=== PATIENT | male | born 1965 | race African-American/Black ===

== ENCOUNTER 2020-02-17 15:08 | Emergency (ER) | payer SELFPAY ==
[2020-02-17] MEDS ORDERED: NA CHLORIDE 0.9% 1,000 ML ONE (15:28)
[2020-02-17 15:55] LABS: Absolute Lymphocytes (CBC) 2.4 K/uL (0.7-4.9); Basophils % 1.3 % (0-1.3); Hematocrit 47.4 % (39.6-49.0); Lymphocytes % 25.1 % (15.3-44.8); MPV 9.7 fL (7.6-11.3); RBC Red Blood Cell Count 5.33 M/uL (4.33-5.43)
[2020-02-17 16:19] LABS: Potassium 3.5 mmol/L (3.5-5.1)
--- NOTE | 2020-02-17 17:47 | ER ---
Nurse's Notes [facility] Name: Shantanu Dent Age: 54 yrs Sex: Male : 1965 Arrival Date: 02/17/2020 Time: 15:11 Bed 8 Private MD: Diagnosis: Heat exhaustion, unspecified;Dehydration Presentation: 02/16 15:14 Chief complaint: Patient states: pt reports that he was working outside and started to jr10 have abd cramping and left arm and leg cramping. Coronavirus screen: Client denies travel out of the [place] in the last 14 days. At this time, the client does not indicate any symptoms associated with coronavirus-19. Ebola Screen: No symptoms or risks identified at this time. Initial Sepsis Screen: Does the patient meet any 2 criteria? No. Patient's initial sepsis screen is negative. Does the patient have a suspected source of infection? No. Patient's initial sepsis screen is negative. Risk Assessment: Do you want to hurt yourself or someone else? Patient reports no desire to harm self or others. Onset of symptoms was February 17, 2020. 15:14 Method Of Arrival: EMS jr10 15:14 Acuity: ESDRAS 3 jr10 Historical: - Allergies: 15:40 No Known Allergies; jr10 - Home Meds: 15:40 None [Active]; jr10 - PMHx: 15:40 Hypertension; jr10 - PSHx: 15:40 None; jr10 - Immunization history:: Adult Immunizations up to date. - Social history:: Smoking status: unknown. - Family history:: not pertinent. - Hospitalizations: : No recent hospitalization is reported. Screenin:14 Abuse screen: Denies threats or abuse. Denies injuries from another. Nutritional jr10 screening: No deficits noted. Tuberculosis screening: No symptoms or risk factors identified. Fall Risk IV access (20 points). Assessment: 15:14 General: Appears uncomfortable, Behavior is restless. Pain: Complains of pain in chest, jr10 left arm and left leg Pain currently is 9 out of 10 on a pain scale. Quality of pain is described as crampy, Is episodic, lasting a few minutes. Neuro: No deficits noted. Cardiovascular: Reports chest pain, cramping across anterior chest wall Rhythm is sinus rhythm. Respiratory: No deficits noted. Airway is patent Respiratory effort is even, unlabored, Respiratory pattern is regular, symmetrical, Denies shortness of breath. GI: Bowel sounds present X 4 quads. Abd is soft and non tender X 4 quads. Reports nausea, Patient currently denies vomiting. : No deficits noted. No signs and/or symptoms were reported regarding the genitourinary system. EENT: No deficits noted. No signs and/or symptoms were reported regarding the EENT system. Derm: Skin is moist. Musculoskeletal: Reports muscle cramping. 17:11 Reassessment: pt ambulatory to bathroom independently with stable and steady gait noted.jr10 17:44 Reassessment: Dr Del Valle at bedside discussing results with pt. jr10 Vital Signs: 15:14 Pulse 88; Resp 20; Temp 98.9; Pulse Ox 98% on R/A; Pain 9/10; jr10 16:08 BP 164 / 84; Pulse 56; Resp 20; Pulse Ox 99% on R/A; jr10 17:11 BP 151 / 78; Pulse 55; Resp 18; Pulse Ox 100% on R/A; Pain 0/10; jr10 ED Course: 15:11 Patient arrived in ED. jr10 15:12 Nehemiah Del Valle MD is Attending Physician. rn 15:14 Patient has correct armband on for positive identification. Bed in low position. Call jr10 light in reach. Side rails up X2. hall monitor on. Pulse ox on. NIBP on. 15:15 Triage completed. jr10 15:15 Arm band placed on. jr10 15:16 Yee Cespedes, [place] is Primary Nurse. jr10 15:16 Maintain EMS IV. Dressing intact. Good blood return noted. Site clean \T\ dry. 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 17:46 Albert Ace MD is Referral Physician. rn 17:58 No provider procedures requiring assistance completed. IV discontinued, intact, jr10 bleeding controlled, No redness/swelling at site. Pressure dressing applied. Administered Medications: 15:28 Drug: NS 0.9% 1000 ml Route: IV; Rate: 1000 ml; Site: left antecubital; jr10 17:12 Follow up: Response: No adverse reaction; IV Status: Completed infusion jr10 Outcome: 17:46 Discharge ordered by MD. rn 17:58 Discharged to home ambulatory. jr10 17:58 Condition: improved 17:58 Discharge instructions given to patient, Instructed on discharge instructions, follow up and referral plans. Demonstrated understanding of instructions, follow-up care. 17:59 Patient left the ED. jr10 Signatures: Nehemiah Del Valle MD MD rn Rivera, Jessica, RN RN jr10
--- NOTE | 2020-02-17 17:47 | EDPHYS ---
Physician Documentation [facility] Name: Shantanu Dent Age: 54 yrs Sex: Male : 1965 Arrival Date: 02/17/2020 Time: 15:11 Bed 8 Private MD: ED Physician Nehemiah Del Valle HPI: 02/16 15:13 This 54 yrs old Black Male presents to ER via Unassigned with complaints of heat rn exhaustion. 15:13 Reports working all day in heat, + generalized weakness, nausea, almost passed out, rn skipped breakfast and lunch, drinking some water, felt "like couldn't cool down", much better in ambulance and after fluids. Reports only muscle cramping. NO chest pain/sob/abd pain/diarrhea/focal neuro complaints. . Onset: The symptoms/episode began/occurred just prior to arrival. Severity of symptoms: At their worst the symptoms were moderate in the emergency department the symptoms are unchanged. The patient has not experienced similar symptoms in the past. The patient has not recently seen a physician. Historical: - Allergies: 15:40 No Known Allergies; jr10 - Home Meds: 15:40 None [Active]; jr10 - PMHx: 15:40 Hypertension; jr10 - PSHx: 15:40 None; jr10 - Immunization history:: Adult Immunizations up to date. - Social history:: Smoking status: unknown. - Family history:: not pertinent. - Hospitalizations: : No recent hospitalization is reported. ROS: 15:13 Constitutional: Negative for fever, chills, and weight loss, Eyes: Negative for injury, rn pain, redness, and discharge, Neck: Negative for injury, pain, and swelling, Cardiovascular: Negative for chest pain, palpitations, and edema, Respiratory: Negative for shortness of breath, cough, wheezing, and pleuritic chest pain, Abdomen/GI: Negative for abdominal pain, vomiting, diarrhea, and constipation, MS/Extremity: Negative for injury and deformity, Skin: Negative for injury, rash, and discoloration, Neuro: Negative for headache, numbness, tingling, and seizure. Exam: 15:13 Constitutional: This is a well developed, well nourished patient who is awake, alert, rn and in no acute distress. Head/Face: Normocephalic, atraumatic. ENT: dry MM Cardiovascular: Regular rate and rhythm. No pulse deficits. Respiratory: Speaking full sentences. No increased work of breathing, no retractions or nasal flaring. Abdomen/GI: soft, non-tender MS/ Extremity: Pulses equal, no cyanosis. Neurovascular intact. Full, normal range of motion. Equal circumference. Neuro: Awake and alert, GCS 15, oriented to person, place, time, and situation. Cranial nerves II-XII grossly intact. Motor strength 5/5 in all extremities. Sensory grossly intact. Cerebellar exam normal. Normal gait. Vital Signs: 15:14 Pulse 88; Resp 20; Temp 98.9; Pulse Ox 98% on R/A; Pain 9/10; jr10 16:08 BP 164 / 84; Pulse 56; Resp 20; Pulse Ox 99% on R/A; jr10 17:11 BP 151 / 78; Pulse 55; Resp 18; Pulse Ox 100% on R/A; Pain 0/10; jr10 MDM: 15:12 Patient medically screened. rn 17:44 Differential Diagnosis dehydration, rhabdomyolysis, heat exhaustion. Data reviewed: rn vital signs, nurses notes, lab test result(s), and as a result, I will discharge patient. Counseling: I had a detailed discussion with the patient and/or guardian regarding: the historical points, exam findings, and any diagnostic results supporting the discharge/admit diagnosis, lab results, the need for outpatient follow up, to return to the emergency department if symptoms worsen or persist or if there are any questions or concerns that arise at home. Response to treatment: the patient's symptoms have resolved after treatment, the patient's condition has returned to base line, the patient is now symptom free, patient is well hydrated. and as a result, I will discharge patient. Special discussion: I discussed with the patient/guardian in detail that at this point there is no indication for admission to the hospital. It is understood, however, that if the symptoms persist or worsen the patient needs to return immediately for re-evaluation. ED course: Pt feels back to normal, + mild renal insufficiency likely 2/2 dehydration, given 2 L bolus here, asymptomatic, CK not greatly elevated, wants to go home, instructed to stay hydrated and if decreased or darker urine production to return. . 02/16 15:13 Order name: CBC with Diff; Complete Time: 16:50 rn 02/16 15:13 Order name: Basic Metabolic Panel; Complete Time: 16:50 rn 02/16 15:13 Order name: EKG; Complete Time: 15:13 rn 02/16 15:13 Order name: CK; Complete Time: 16:50 rn 02/16 15:16 Order name: Magnesium; Complete Time: 16:50 rn 02/16 15:13 Order name: IV Start; Complete Time: 15:17 rn 02/16 15:13 Order name: EKG - Nurse/Tech; Complete Time: 15:38 rn Administered Medications: 15:28 Drug: NS 0.9% 1000 ml Route: IV; Rate: 1000 ml; Site: left antecubital; jr10 17:12 Follow up: Response: No adverse reaction; IV Status: Completed infusion jr10 Disposition: 02/17/20 17:46 Discharged to Home. Impression: Heat exhaustion, unspecified, Dehydration. - Condition is Stable. - Discharge Instructions: Dehydration, Adult, Heat Exhaustion Information. - Work release form, Medication Reconciliation Form, Thank You Letter, Antibiotic Education, Prescription Opioid Use form. - Follow up: Albert Ace MD; When: As needed; Reason: Recheck today's complaints, Re-evaluation by your physician. - Problem is new. - Symptoms have improved. Signatures: Dispatcher [employer] EDNehemiah Chung MD MD rn Rivera, Jessica, RN RN jr10 Corrections: (The following items were deleted from the chart) 17:59 17:46 02/17/2020 17:46 Discharged to Home. Impression: Heat exhaustion, unspecified; jr10 Dehydration. Condition is Stable. Forms are Medication Reconciliation Form, Thank You Letter, Antibiotic Education, Prescription Opioid Use. Follow up: Albert Ace; When: As needed; Reason: Recheck today's complaints, Re-evaluation by your physician. Problem is new. Symptoms have improved. rn
[2020-02-17 19:00] VITALS: TEMP 98.9
[2020-02-17 19:03] VITALS: BP 151/78; O2SAT 100
--- NOTE | 2020-02-19 08:44 | EKG ---
Test Date: 2020-02-17 Test Time: 15:37:44 Public Health Director: DANIELA MEASUREMENT RESULTS: Intervals: Rate: 64 NM: 202 QRSD: 104 QT: 424 QTc: 437 [place]: P: 3 NM: 202 QRS: 75 T: 49 INTERPRETIVE STATEMENTS: Normal sinus rhythm Nonspecific ST and T wave abnormality Abnormal ECG Compared to ECG 06/30/2016 14:24:30 ST (T wave) deviation now present First degree AV block no longer present Electronically Signed On 02-19-20 08:38:53 CDT by Baltazar Xiong
== END 2020-02-17 17:59 | disposition home or self-care (01) ==
LOC: ER 15:08
DX: E86.0 Dehydration (principal); I10 Essential (primary) hypertension
CPT/HCPCS: 36415; 80048; 82550; 83735; 85025; 93005; 96360; 96361; 99284; J7030